=== PATIENT | female | born 1960 | race Caucasian/White ===

== ENCOUNTER 2016-10-24 13:03 | Observation (INO) | payer OTHER ==
[~2016-10-24] VITALS: Ht 160 cm; Wt 80.0 kg
[2016-10-24] MEDS ORDERED: AMLO-147 PO (14:12)
[2016-10-24 14:35] LABS: BASOPHIL # 0.1 10^3/ul (0.0-0.1); BASOPHILS % 0.6 % (0.0-2.0); EOSINOPHILS # 0.1 10^3/ul (0.0-0.5); EOSINOPHILS % 0.5 % (0.0-7.0); HEMATOCRIT 44.2 % (37.0-47.0); HEMOGLOBIN 14.5 g/dl (12.0-16.0); LYMPHOCYTES # 2.4 10^3/ul (0.8-2.9); LYMPHOCYTES % 25.6 % (15.0-51.0); MEAN CORPUSCULAR HEMOGLOBIN 29.1 pg (29.0-33.0); MEAN CORPUSCULAR HGB CONC 32.8 g/dl (32.0-37.0); MEAN CORPUSCULAR VOLUME 88.6 fl (82.0-101.0); MEAN PLATELET VOLUME 9.7 fl (7.4-10.4); MONOCYTE # 0.7 10^3/ul (0.3-0.9); MONOCYTES % 7.8 % (0.0-11.0); NEUTROPHIL # 6.2 10^3/ul (1.6-7.5); NEUTROPHILS % 65.1 % (39.0-77.0); PLATELET COUNT 299 10^3/UL (140-415); RED BLOOD COUNT 4.99 10^6/ul (4.20-5.40); RED CELL DISTRIBUTION WIDTH 13.4 % (11.5-14.5); WHITE BLOOD COUNT 9.5 10^3/ul (4.8-10.8)
[2016-10-24 14:50] LABS: ANION GAP 13 (8-16); BLOOD UREA NITROGEN 12 mg/dl (7-20); CARBON DIOXIDE 27 mmol/L (21-31); CHLORIDE 106 mmol/L (97-110); CREATININE 0.77 mg/dl (0.44-1.00); GLUCOSE 86 mg/dl (70-220); POTASSIUM 4.2 mmol/L (3.5-5.1); SODIUM 142 mmol/L (135-144)
--- NOTE | 2016-10-24 14:59 | RADRPT ---
PROCEDURE: XR Chest. CLINICAL INDICATION: chest pain TECHNIQUE: Single frontal view of the chest was obtained COMPARISON: None FINDINGS: The heart and mediastinum are within normal limits. The lungs are clear. There is no pleural effusion or pneumothorax. RPTAT: AA IMPRESSION: No acute disease. .Umang Lnage MD, Date Time Electronically viewed and signed by .Umang Lange MD, on 10/24/2016 14:59 .S/
[2016-10-24 15:12] LABS: TROPONIN-I < 0.012 ng/ml (0.00-0.12)
[2016-10-24 15:22] VITALS: TEMP 97.6
--- NOTE | 2016-10-24 17:57 | ERA ---
ER Documentation Chief Complaint Date/Time DATE: 10/24/16 TIME: 17:48 Chief Complaint CP/SOB X 2HRS HPI This a 56-year-old female who is complaining of 2 days of heart racing with chest pain shortness of breath. She is chest pain is described as a pressure that can radiate into her left shoulder and sometimes neck. She says the heart racing and pain last about 10 minutes to go away. She says she has a history of having some arrhythmia years and years ago but does not know the name of arrhythmia. She is not on any anticoagulants. She says that she has had this off and on for 2 days but is worse during emotional stress. She is having some issues with her family. Currently she has no pain or palpitations. ROS All systems reviewed and are negative except as per history of present illness. Medications Home Meds Reported Medications Amlodipine Besylate* (Amlodipine Besylate*) 10 Mg Tablet, 10 MG PO DAILY, #30 TAB 10/24/16 Allergies Allergies: Coded Allergies: Tetracyclines (Unverified Allergy, Unknown, LOCKING JOINTS, 10/24/16) PMhx/Soc History of Surgery: Yes (OVARIAN CYST/LEFT BREAST CYST/TUBAL LIGATION AND REVERSAL) Anesthesia Reaction: No Hx Neurological Disorder: No Hx Respiratory Disorders: No Hx Cardiac Disorders: Yes (HTN, ARRYTHMIAS) Hx Psychiatric Problems: Yes (DEPRESSION ) Hx Miscellaneous Medical Probl: No Hx Alcohol Use: No Hx Substance Use: No Hx Tobacco Use: No Smoking Status: Former smoker FmHx Family History: No coronary disease Physical Exam Vitals Vital Signs Date Time Temp Pulse Resp B/P Pulse Ox O2 Delivery O2 Flow Rate FiO2 10/24/16 15:22 97.6 77 14 141/75 99 Room Air 10/24/16 14:02 98.6 83 12 138/75 99 Room Air 10/24/16 13:09 98.6 89 20 133/65 98 Physical Exam Const: Well-developed, well-nourished Head: Atraumatic, normocephalic Eyes: Normal Conjunctiva, PERRLA, EOMI, normal sclera, no nystagmus ENT: Normal External Ears, Nose and Mouth, moist mucus membranes. Neck: Full range of motion. No meningismus, no lymphadenopathy. Resp: Clear to auscultation bilaterally, no wheezing, rhonchi, rales Cardio: Regular rate and rhythm, no murmurs, S1 S2 present Abd: Soft, non tender x 4, non distended. Normal bowel sounds, no guarding or rebound, no pulsitile abdominal masses or bruits Skin: No petechiae or rashes, no ecchymosis , no maculopapular rash Back: No midline or flank tenderness Ext: No cyanosis, or edema, FROM x 4, normal inspection, neurovascularly intact x 4 Neur: Awake and alert, STR 5/5 x 4, sensation intact x 4, no focal findings, cerebellum intact Psych: Normal Mood and Affect Result Diagram: 10/24/16 1420 10/24/16 1420 Results 24 hrs Laboratory Tests Test 10/24/16 14:20 White Blood Count 9.510^3/ul Red Blood Count 4.9910^6/ul Hemoglobin 14.5g/dl Hematocrit 44.2% Mean Corpuscular Volume 88.6fl Mean Corpuscular Hemoglobin 29.1pg Mean Corpuscular Hemoglobin Concent 32.8g/dl Red Cell Distribution Width 13.4% Platelet Count 54412^3/UL Mean Platelet Volume 9.7fl Neutrophils % 65.1% Lymphocytes % 25.6% Monocytes % 7.8% Eosinophils % 0.5% Basophils % 0.6% Nucleated Red Blood Cells % 0.0/100WBC Neutrophils # 6.210^3/ul Lymphocytes # 2.410^3/ul Monocytes # 0.710^3/ul Eosinophils # 0.110^3/ul Basophils # 0.110^3/ul Nucleated Red Blood Cells # 0.010^3/ul Sodium Level 142mmol/L Potassium Level 4.2mmol/L Chloride Level 106mmol/L Carbon Dioxide Level 27mmol/L Anion Gap 13 Blood Urea Nitrogen 12mg/dl Creatinine 0.77mg/dl Glucose Level 86mg/dl Calcium Level 10.0mg/dl Troponin I < 0.012ng/ml Procedures/MDM PROCEDURE: XR Chest. CLINICAL INDICATION: chest pain TECHNIQUE: Single frontal view of the chest was obtained COMPARISON: None FINDINGS: The heart and mediastinum are within normal limits. The lungs are clear. There is no pleural effusion or pneumothorax. RPTAT: AA IMPRESSION: No acute disease. .Umang Lange MD, MD Date Time Electronically viewed and signed by .Umang Lange MD, on 10/24/2016 14: 59 .S/ CC: BRANDY DORADO DO EKG: Rate/Rhythm: Normal Sinus Rhythm,NL intervals QRS, ST, QT: NORMAL NE, QRS, QT] Impression: NORMAL EKG Patient's symptoms are concerning for cardiac cause will require inpatient workup and continuous monitoring. Further w/u for ischemia, arrhythmia, PE or dissection will be deferred to the inpatient team. Accepting Care Team: Current data and ongoing care discussed. Time: Time of admission Primary Provider: SAVITA Consulting: SAVITA Outstanding Data: none Departure Diagnosis: Primary Impression: Chest pain Qualified Code: R07.9 - Chest pain, unspecified type Condition: Stable BRANDY DORADO DO Oct 24, 2016 17:57
[2016-10-24] MEDS ORDERED: LORAZEPAM 2 MG INJ IV ONE (19:00)
[2016-10-24] MEDS ORDERED: ACETAMINOPHEN 325 MG TAB PO PRN ×2 (19:00→20:00)
[2016-10-24] MEDS ORDERED: ONDANSETRON 4 MG INJ IV PRN ×2 (19:00→20:00)
--- NOTE | 2016-10-24 19:33 | HP ---
Date/Time of Note Date/Time of Note DATE: 10/24/16 TIME: 19:29 Assessment/Plan VTE Prophylaxis VTE Prophylaxis Intervention: SCD's Lines/Catheters IV Catheter Type (from Nrs): Saline Lock Assessment/Plan Chief Complaint/Hosp Course 1. Chest pain likely secondary to muscle skeletal pain from anxiety Patient has had a workup in the past that was negative the patient has had pain for 5 days now No evidence of ACS at this time Trend troponin 2. Hypertension Continue home Norvasc Prophylaxis: SCDs Problems: HPI/ROS Admit Date/Time Admit Date/Time October 24, 2016 Hx of Present Illness Patient is a 56-year-old female with a history of hypertension as well as chronic chest pain with cardiac workup in the past, patient presents with chest pain for the past 5 days. Patient describes pain as a pressure-like sensation in her left chest, she denies any shortness of breath denies nausea vomiting or diaphoresis. 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 She has been told that her pain is related to anxiety and patient does state that her son makes her anxious. Patient has no other complaints this time. ROS Constitutional: improved, no complaints Eyes: no complaints ENT: no complaints Respiratory: no complaints Cardiovascular: chest pain Gastrointestinal: no complaints Genitourinary: no complaints Musculoskeletal: no complaints Skin: no complaints Neurologic: no complaints Endocrine: no complaints Lymphatic: no complaints Psychological: anxiety Immunologic: no complaints PMH/Family/Social Past Medical History Hypertension Past Surgical History Hemorrhoid removal Family History Significant Family History: no pertinent family hx Social History Alcohol Use: rarely Smoking Status: Former smoker Drug Use: none Exam/Review of Systems Vital Signs Vitals Vital Signs Date Time Temp Pulse Resp B/P Pulse Ox O2 Delivery O2 Flow Rate FiO2 10/24/16 18:34 85 14 137/77 99 Room Air 10/24/16 15:22 97.6 Exam Constitutional: alert, oriented Respiratory: clear to auscultation Cardiovascular: regular rate and rhythm Gastrointestinal: soft, No distended Musculoskeletal: nl extremities to inspection Labs Result Diagram: 10/24/16 1420 10/24/16 1420 REJI MENDOZA Oct 24, 2016 19:33
[2016-10-24] MEDS ORDERED: NITROGLYCERIN (SL) 0.4 MG TAB SL PRN (20:00)
[2016-10-24] MEDS ORDERED: ZOLPIDEM 5 MG TAB PO PRN (20:00)
[2016-10-24] MEDS ORDERED: NACL 0.9% 3 ML SYG IV SCH (20:00)
[2016-10-24] MEDS ORDERED: DOCUSATE SODIUM 100 MG CAP PO PRN (20:00)
[2016-10-24] MEDS ORDERED: HYDROCODONE/APAP (5/325) TAB PO PRN (20:00)
[2016-10-24] MEDS ORDERED: morphine 2 MG INJ IV PRN (20:00)
[2016-10-24 20:43] VITALS: PULSE 93
[2016-10-24 21:16] LABS: CREATINE KINASE 152 IU/L (23-200)
[2016-10-24 21:25] VITALS: Ht 160 cm; Wt 80.0 kg
[2016-10-24 21:28] LABS: CK-MB 1.06 ng/ml (0.0-2.4)
[2016-10-24 21:30] LABS: TROPONIN-I < 0.012 ng/ml (0.00-0.12)
[2016-10-25] VITALS (9 sets, daily range): BP systolic 121–139; BP diastolic 68–74; PULSE 68–96; RESP 18–20
[2016-10-25 02:56] LABS: CREATINE KINASE 149 IU/L (23-200)
[2016-10-25 03:09] LABS: CK-MB 1.06 ng/ml (0.0-2.4)
[2016-10-25 03:13] LABS: TROPONIN-I < 0.012 ng/ml (0.00-0.12)
[2016-10-25 07:09] LABS: BASOPHILS % 0.3 % (0.0-2.0); EOSINOPHILS # 0.1 10^3/ul (0.0-0.5); EOSINOPHILS % 1.5 % (0.0-7.0); HEMATOCRIT 40.6 % (37.0-47.0); HEMOGLOBIN 13.3 g/dl (12.0-16.0); LYMPHOCYTES # 2.5 10^3/ul (0.8-2.9); LYMPHOCYTES % 28.8 % (15.0-51.0); MEAN CORPUSCULAR HEMOGLOBIN 29.1 pg (29.0-33.0); MEAN CORPUSCULAR HGB CONC 32.8 g/dl (32.0-37.0); MEAN CORPUSCULAR VOLUME 88.8 fl (82.0-101.0); MEAN PLATELET VOLUME 9.5 fl (7.4-10.4); MONOCYTE # 0.6 10^3/ul (0.3-0.9); NEUTROPHIL # 5.4 10^3/ul (1.6-7.5); NEUTROPHILS % 62.1 % (39.0-77.0); PLATELET COUNT 262 10^3/UL (140-415); RED BLOOD COUNT 4.57 10^6/ul (4.20-5.40); RED CELL DISTRIBUTION WIDTH 13.3 % (11.5-14.5); WHITE BLOOD COUNT 8.7 10^3/ul (4.8-10.8)
[2016-10-25 07:42] LABS: CALCIUM 9.3 mg/dl (8.4-10.2); CHOL/HDL RATIO 3.5 RATIO; CREATININE 0.71 mg/dl (0.44-1.00); MAGNESIUM 2.3 mg/dl (1.7-2.5); PHOSPHORUS 4.1 mg/dl (2.5-4.9)
[2016-10-25] MEDS ORDERED: AMLODIPINE 10 MG TAB PO SCH (09:00)
--- NOTE | 2016-10-25 11:33 | PDOCDIS ---
Discharge Instructions CONDITION Patient Condition: Good HOME CARE INSTRUCTIONS: Diet Instructions: Regular ACTIVITY: Activity Restrictions: No Restrictions FOLLOW UP/APPOINTMENTS Follow-up Plan F/U WITH YOUR PCP IN 1-2 WEEKS REJI MENDOZA Oct 25, 2016 11:33
--- NOTE | 2016-10-25 16:34 | DS ---
Date/Time of Note Date/Time of Note DATE: 10/25/16 TIME: 16:31 Discharge Summary Admission/Discharge Info Admit Date/Time Oct 24, 2016 at 18:35 Discharge Date/Time October 25, 2016 Discharge Diagnosis 1. Chest pain secondary to muscle skeletal pain from anxiety ACS ruled out Patient has had a workup in the past that was negative the patient has had pain for 5 days and the pain is reproducible with palpation Patient states that she has anxiety from her son 2. Hypertension Continue home [facility] Patient Condition: Good Hospital Course Patient is a 56-year-old female with a history of hypertension as well as chronic chest pain with cardiac workup in the past, patient presents with chest pain for the past 5 days. ACS was ruled out and pain is reproducible with palpation. Chest pain is secondary to anxiety, patient states that her son makes her anxious. Patient was instructed on relaxation measures and on day of discharge patient vitals, labs and physical exam are stable, she had no further acute complaints and questions are answered. Patient was instructed to follow- up with her PCP and a kids club attendant if pain continues. Home Meds Reported Medications Amlodipine Besylate* (Amlodipine Besylate*) 10 Mg Tablet, 10 MG PO DAILY, #30 TAB 10/24/16 Follow-up Plan F/U WITH YOUR PCP IN 1-2 WEEKS Primary Care Provider Not On Staff Doctor Time spent on discharge: > 30 minutes REJI MENDOZA Oct 25, 2016 16:34
[2016-10-26] MEDS ORDERED: ASPIRIN 81 MG TAB PO SCH (09:00)
== END 2016-10-25 18:40 | disposition home or self-care (01) ==
LOC: E/R 13:03 → MS4 18:35
PROVIDERS: ADMIT Internal Medicine; ATTEND Internal Medicine
DX: R07.89 Other chest pain (principal); I10 Essential (primary) hypertension; F32.9 Major depressive disorder, single episode, unspecified; Z88.1 Allergy status to other antibiotic agents; Z87.891 Personal history of nicotine dependence
CPT/HCPCS: 36415; 71010; 80048; 80061; 82550; 82553; 83036; 83735; 84100; 84484; 85025; 93005; 96374; J2060; Z7500; Z7502; Z7610; G0378